=== PATIENT | male | born 1975 | race Caucasian/White ===

== ENCOUNTER 2019-01-29 16:17 | Emergency (ER) | payer SELFPAY ==
[2019-01-29] MEDS ORDERED: Tetan/Diph/Pertus SYR(Tdap)* 0.5 ML SYR(BOOSTRIX) use SYR IM ONE (17:01)
[2019-01-29] MEDS ORDERED: Lidocaine 1%* 5 ML VIAL INJ ONE (17:04)
--- NOTE | 2019-01-29 17:38 | UC ---
Laceration HPI - HPI Summary HPI Summary: 43-year-old male presents for laceration to the base of his left thumb. States he accidentally cut with a utility knife while at work just prior to arrival. Bleeding controlled with direct pressure prior to arrival. Reports full ROM to thumb. Denies numbness or tingling. Last tetanus 2004. - History Of Current Complaint Chief Complaint: UCLaceration Stated Complaint: HAND LACERATION Time Seen by Provider: 01/29/19 16:55 Hx Obtained From: Patient Pain Intensity: 4 - Allergies/Home Medications Allergies/Adverse Reactions: Allergies Allergy/AdvReac Type Severity Reaction Status Date / Time No Known Allergies Allergy Verified 01/29/19 16:42 Home Medications: Home Medications NK [No Home Medications Reported] 01/29/19 [History Confirmed 01/29/19] PMH/Surg Hx/FS Hx/Imm Hx Previously Healthy: Yes - Denies significant PMH - Surgical History Surgical History: None - Family History Known Family History: Positive: Non-Contributory - Social History Occupation: Employed Full-time Lives: With Family Alcohol Use: Occasionally Substance Use Type: None Smoking Status (MU): Light Every Day Tobacco Smoker Type: Cigars - Immunization History Most Recent Tetanus Shot: 2004 Review of Systems All Other Systems Reviewed And Are Negative: Yes Constitutional: Positive: Negative Skin: Positive: Other - See HPI Respiratory: Positive: Negative Cardiovascular: Positive: Negative Gastrointestinal: Positive: Negative Genitourinary: Positive: Negative Neurovascular: Negative: Decreased Sensation Musculoskeletal: Negative: Decreased ROM Neurological: Positive: Negative Is Patient Immunocompromised?: No Physical Exam - Summary Physical Exam Summary: GENERAL APPEARANCE: Well developed, well nourished, alert and cooperative, and appears to be in no acute distress. CARDIAC: Normal S1 and S2. No S3, S4 or murmurs. Rhythm is regular. There is no peripheral edema, cyanosis or pallor. Extremities are warm and well perfused. Capillary refill is less than 2 seconds. Peripheral pulses intact. LUNGS: Clear to auscultation without rales, rhonchi, wheezing or diminished breath sounds. ABDOMEN: Positive bowel sounds. Soft, nondistended, nontender. No guarding or rebound. No masses or hepatosplenomegally. MUSKULOSKELETAL: Normal muscular development. Normal gait. EXTREMITIES: Superficial linear laceration to the base of the dorsal left thumb with bleeding controlled. Full ROM to thumb against resistance. Circulation and sensation intact. SKIN: Skin normal color, texture and turgor. Triage Information Reviewed: Yes Vital Signs: Initial Vital Signs Temp 98.5 F 01/29/19 16:39 Pulse 79 01/29/19 16:39 Resp 18 01/29/19 16:39 BP 142/94 01/29/19 16:39 Pulse Ox 99 01/29/19 16:39 Vital Signs Reviewed: Yes Procedures - Procedure Summary Procedure Summary: Procedure note: Laceration repair left thumb Informed consent was obtained before procedure started and the appropriate timeout was taken. The area was prepped and draped in the usual sterile fashion. Local anesthesia was achieved using 2 ml of lidocaine 1% without epinephrine. The wound was copiously irrigated. The wound margins were brought into good alignment and 4 interrupted sutures were placed using 5-0 Ethilon. Measurement after repair 1.5 cm. Estimated blood loss was minimal. A dressing was applied to the area. Anticipatory guidance, as well as standard post-procedure care was discussed with patient. Return precautions are given. The patient tolerated the procedure well without complications. Patient is to follow up in 10 days for suture removal and evaluation of the laceration. Laceration Course/Dx - Course/Dx Course Of Treatment: 43-year-old male presents for laceration to the base of his left thumb. States he accidentally cut with a utility knife while at work just prior to arrival. Bleeding controlled with direct pressure prior to arrival. Reports full ROM to thumb. Denies numbness or tingling. Last tetanus 2004. Afebrile. VSS. Patient had superficial linear laceration to the base of the dorsal left thumb with bleeding controlled, full ROM to thumb against resistance, circulation and sensation intact and otherwise unremarkable exam. The laceration was repaired with a total of 4 interrupted sutures using 5-0 Ethilon. Patient tolerated procedure well. His tetanus was updated. He is to return in 10 days for suture removal. Wound care, anticipatory guidelines, and warning symptoms were reviewed with patient. Verbalizes understanding and agrees with POC. - Differential Dx - Laceration/Wound Differental Diagnoses: Laceration - Diagnosis Provider Diagnosis: Laceration of left thumb Discharge - Sign-Out/Discharge Documenting (check all that apply): Patient Departure All imaging exams completed and their final reports reviewed: No Studies - Discharge Plan Condition: Stable Disposition: HOME Patient Education Materials: Care For Your Stitches (ED), Laceration (ED) Referrals: No Primary Care Phys,NOPCP [Primary Care Provider] - Additional Instructions: Leave the dressing that was applied in the clinic in place for the next 24 hours. Be sure to keep it clean and dry. After 24 hours, you may remove the dressing and shower and wash hands as normal. Do nut submerge the hand under water to prevent infection. Clean the wound with a mild soap and water at least once a day. Apply some antibiotic ointment and cover with a bandage. This should be changed at least once a day or any time the dressing becomes wet or soiled. Use acetaminophen (Tylenol) or ibuprofen (Advil, Motrin) according to directions as needed for pain. Sutures will need to be removed in 10 days. You may return here or with your primary care provider to have this done. Watch for signs of infection including fever greater than 100.5 F, severe pain not managed with pain medication, redness that spreads, swelling of the hand/ fingers, or pus draining from the wound. Seek immediate medical attention should any of these occur. - Billing Disposition and Condition Condition: STABLE Disposition: Home
== END 2019-01-29 17:47 | disposition home or self-care (01) ==
LOC: UCEAST 16:17
DX: S61.012A Laceration without foreign body of left thumb without damage to nail, initial encounter (principal); W26.0XXA Contact with knife, initial encounter; Y92.9 Unspecified place or not applicable; Y99.0 Civilian activity done for income or pay; Z23 Encounter for immunization; F17.290 Nicotine dependence, other tobacco product, uncomplicated
CPT/HCPCS: 12001; 90715; 99201; G0463

== ENCOUNTER 2019-02-08 17:00 | Emergency (ER) | payer SELFPAY ==
--- NOTE | 2019-02-08 17:05 | UC ---
Laceration HPI - HPI Summary HPI Summary: 43 yo male presents for suture removal. He had 4 sutures placed on 01/29 to his left thumb. Has had no issues such as redness, increased pain, swelling, drainage, or fever. - History Of Current Complaint Stated Complaint: SUTURE REMOVAL Hx Obtained From: Patient Laceration Location: Finger Mechanism Of Injury: Sharp Trauma - Allergies/Home Medications Allergies/Adverse Reactions: Allergies Allergy/AdvReac Type Severity Reaction Status Date / Time No Known Allergies Allergy Verified 02/08/19 17:10 PMH/Surg Hx/FS Hx/Imm Hx - Additional Past Medical History Additional PMH: None - Surgical History Surgical History: None - Family History Known Family History: Positive: Non-Contributory - Social History Occupation: Employed Full-time Lives: With Family Alcohol Use: Occasionally Substance Use Type: None Smoking Status (MU): Light Every Day Tobacco Smoker Type: Cigars - Immunization History Most Recent Tetanus Shot: 2004 Review of Systems All Other Systems Reviewed And Are Negative: Yes Constitutional: Positive: Negative Skin: Positive: Other - Left thumb [address] Respiratory: Positive: Negative Cardiovascular: Positive: Negative Neurovascular: Positive: Negative Musculoskeletal: Positive: Negative Neurological: Positive: Negative Psychological: Positive: Negative Physical Exam - Summary Physical Exam Summary: GENERAL: NAD. WDWN. No pain distress. SKIN: LEFT THUMB: dorsal aspect overlying MCP with well healed linear laceration and [address] No erythema, edema, tenderness, or drainage. CHEST: No accessory muscle use. Breathing comfortably and in no distress. CV: Pulses intact. Cap refill <2seconds MSK: FROM without pain or restriction to left thumb NEURO: Alert. PSYCH: Age appropriate behavior. Triage Information Reviewed: Yes Vital Signs: Vital Signs: Temp Pulse Resp BP Pulse Ox 98.5 F 73 16 146/80 100 02/08/19 17:07 02/08/19 17:07 02/08/19 17:07 02/08/19 17:07 02/08/19 17:07 Vital Signs Reviewed: Yes Laceration Course/Dx - Course/Dx Course Of Treatment: Four sutures removed without difficulty. Laceration fully healed. - Diagnosis Provider Diagnosis: Visit for suture removal Discharge - Sign-Out/Discharge Documenting (check all that apply): Patient Departure All imaging exams completed and their final reports reviewed: No Studies - Discharge Plan Condition: Stable Disposition: HOME Patient Education Materials: Stitches Removal (ED) Referrals: No Primary Care Phys,NOPCP [Primary Care Provider] - Additional Instructions: If you develop a fever, shortness of breath, chest pain, new or worsening symptoms - please call your PCP or go to the ED immediately. - Billing Disposition and Condition Condition: STABLE Disposition: Home
[2019-02-08 17:10] VITALS: BP 146/80
== END 2019-02-08 17:16 | disposition home or self-care (01) ==
LOC: UCEAST 17:00
DX: Z48.02 Encounter for removal of sutures (principal); F17.290 Nicotine dependence, other tobacco product, uncomplicated